=== PATIENT | male | born 1975 ===

== ENCOUNTER 2017-05-20 13:34 | Emergency (ER) | payer SELFPAY ==
[2017-05-20 13:57] VITALS: BP 127/69; PULSE 97; RESP 18; TEMP 97.3; O2SAT 100
--- NOTE | 2017-05-20 14:40 | EDPHY ---
H & P Time Seen by Provider: 05/20/17 14:33 HPI/ROS: CHIEF COMPLAINT: Dry mouth and numbness in entire body HISTORY OF PRESENT ILLNESS: A 41-year-old man ate THC edible at noon, 1st time he has ever done this, presents with full body numbness and a dry mouth. He says the symptoms are severe and associated with feeling very tired. Started about 30 min after eating the edible. No other exposures. No pain. Slow to respond. REVIEW OF SYSTEMS: Eye: no change in vision ENT: no sore throat Cardiac: no chest pain or syncope, does have feeling of racing heart rate Pulmonary: no cough or SOB Abdomen: no vomiting, diarrhea, abdominal pain Musculoskeletal: no back pain Skin: no rash Neuro: no headache Constitutional: no fever : no urinary symptoms A comprehensive 10 point review of systems is otherwise negative aside from elements mentioned in the history of present illness. PAST MEDICAL HISTORY: Negative Social history: THC edible as above. General Appearance: Alert and conversant, cooperative. Eyes: No scleral icterus. Pupils 4 mm reactive and extraocular motion intact. ENT, Mouth: Normal mucous membranes. Respiratory: Normal respiratory effort, breath sounds equal, lungs are clear to auscultation. Cardiovascular: Regular rate and rhythm. Gastrointestinal: Abdomen is soft and non tender. Neurological: Alert, face symmetric, normal motor and sensory in extremities. Skin: Warm and dry, no rashes. Musculoskeletal: No peripheral edema. Psychiatric: Not agitated. Emergency Department course/MDM: Patient's symptoms are consistent with his THC ingestion. I do not think it is likely he has stroke or metabolic abnormality or other acute neurologic problem or cardiac problem. He can safely be discharged home with his friend, he is warned symptoms may last several more hours. Smoking Status: Never smoked Constitutional: Initial Vital Signs Temperature (C) 36.3 C 05/20/17 13:56 Heart Rate 97 05/20/17 13:56 Respiratory Rate 18 05/20/17 13:56 Blood Pressure 127/69 H 05/20/17 13:56 O2 Sat (%) 100 05/20/17 13:56 O2 Delivery Mode Room Air Allergies/Adverse Reactions: No Known Allergies Allergy (Unverified 05/20/17 13:54) Departure - Departure Disposition: Home, Routine, Self-Care Clinical Impression: Adverse reaction to cannabis Qualifiers: Encounter type: initial encounter Qualified Code(s): T40.7X5A - Adverse effect of cannabis (derivatives), initial encounter Condition: Good Instructions: Cannabis Abuse (ED) Referrals: Luke Rothman MD [[facility] [place] Primary Care Provider] - As per Instructions
== END 2017-05-20 15:00 | disposition home or self-care (01) ==
DX: R20.0 Anesthesia of skin (principal); T40.7X5A Adverse effect of cannabis (derivatives), initial encounter